=== PATIENT | female | born 1985 | race Hispanic/Latino ===

== ENCOUNTER 2017-01-11 07:38 | Emergency (ER) | payer OTHER ==
[2017-01-11] MEDS ORDERED: Promethazine HCl 25 MG/ML VIAL ONE (08:23)
[2017-01-11] MEDS ORDERED: Sodium Chloride 0.9% 1,000 ML ONE (08:23)
[2017-01-11] MEDS ORDERED: Pantoprazole 40 MG VIAL ONE (08:24)
[2017-01-11 09:16] LABS: #Basophils 0.1 thou/uL (0.0-0.2); #Lymphocytes 1.1 thou/uL (1.20-3.40); #Monocytes 0.4 thou/uL (0.11-0.59); #Neutrophils 7.3 thou/uL (1.40-6.50); %Basophils 0.6 % (0.0-1.0); %Lymphocytes 12.9 % (21.0-51.0); %Monocytes 4.3 % (0.0-10.0); %Neutrophils 82.1 % (42.0-75.0); Hemoglobin 11.4 g/dL (12.0-16.0); Mean Corpuscular HGB CONC 30.3 g/dL (32.0-36.0); Mean Corpuscular Hemoglobin 22.6 pg (27.0-31.0); Mean Corpuscular Volume 74.8 fl (81.0-99.0); Mean Platelet Volume 8.2 fL (7.4-10.4); Platelet Count 353 thou/uL (130-400); RBC Distribution Width 18.5 % (11.5-14.5); Red Blood Cell (RBC) Count 5.02 mill/uL (4.20-5.40); White Blood Cell (WBC) Count 8.9 thou/uL (4.8-10.8)
[2017-01-11 09:20] LABS: ALT (SGPT) 14 U/L (0-55); AST (SGOT) 25 U/L (5-34); Albumin 4.7 g/dL (3.5-5.0); Alkaline Phosphatase 111 U/L (40-150); Amylase 117 U/L (25-125); Anion Gap 20 mmol/L (10-20); BUN (Urea Nitrogen) 13 mg/dL (7.0-18.7); Bilirubin, Total 0.6 mg/dL (0.2-1.2); Calc. Creatinine Clearance 0 mL/min (70-130); Calcium 9.8 mg/dL (7.8-10.44); Carbon Dioxide 22 mmol/L (22-29); Chloride 103 mmol/L (98-107); Estimated GFR-MDRD 81; Globulin 4.3 g/dL (2.4-3.5); Glucose 115 mg/dL (70-105); Lipase 23 U/L (8-78); Potassium 3.6 mmol/L (3.5-5.1); Sodium 141 mmol/L (136-145)
[2017-01-11 09:21] LABS: MDiff Complete? YES; Microcytosis SLIGHT = 6-15 cells (100X) (0-5/hpf)
[2017-01-11 09:22] LABS: Anisocytosis SLIGHT = 6-15 cells (100X) (0-5/hpf); PLT Morphology Comment Appears Adequate
[2017-01-11 09:35] LABS: Blood, Urine Trace (Negative); Clarity Clear (Clear); Glucose, Urine (Dipstick) Negative (Negative); Leukocyte Negative (Negative); Nitrite Negative (Negative); Protein, Urine (Dipstick) > or equal to 300 mg/dL (Neg-Trace); pH, Urine 8.5 (5.0-9.0)
[2017-01-11 09:53] LABS: Bilirubin Negative (Negative); Icto Negative (Negative)
[2017-01-11 09:55] LABS: Pregu Control Bar Appear? YES (CONTROL BAR)
--- NOTE | 2017-01-11 10:52 | CT ---
CT ABDOMEN AND PELVIS WITHOUT IV CONTRAST: Date: 01/11/17 HISTORY: Nausea and vomiting for 24 hours. COMPARISON: Contrasted study on 02/29/16. FINDINGS: Postsurgical changes related to cholecystectomy are again noted. The lung bases, liver, spleen, pancreas, bilateral adrenal glands, kidneys, urinary bladder, and samish fahad demonstrate a grossly normal nonenhanced CT appearance. As noted on the prior examination, there is a left ovarian hypodense cystic lesion which measures 1. 9 cm and is not significantly changed in size. This again demonstrates an attenuation coefficient mo st suggestive of an ovarian cyst. No renal or ureteral calculi are seen bilaterally, and there is no evidence of hydronephrosis. A retrocecal appendix is visualized and normal in caliber. IMPRESSION: 1. Stable hypodense left ovarian cystic lesion which does demonstrate an attenuation coefficient mo st suggestive of a cyst. This is unchanged in size compared to the prior exam. 2. No renal or ureteral calculi seen bilaterally. 3. No CT evidence of appendicitis. 4. Post cholecystectomy changes. POS: JAYRO
== END 2017-01-11 10:57 | disposition home or self-care (01) ==
LOC: NAV ERS 07:38
DX: G43.A0 Cyclical vomiting, in migraine, not intractable (principal); R10.13 Epigastric pain; J45.909 Unspecified asthma, uncomplicated; F41.9 Anxiety disorder, unspecified; Z79.899 Other long term (current) drug therapy
CPT/HCPCS: 74176; 80053; 81003; 81025; 82150; 83690; 85025; 96361; 96372; 96374; 96375; C9113; J2270; J2550; J7050

== ENCOUNTER 2017-01-11 21:33 | Emergency (ER) | payer OTHER ==
[2017-01-11] MEDS ORDERED: Sodium Chloride 0.9% 1,000 ML ONE (21:57)
[2017-01-11] MEDS ORDERED: Promethazine HCl 25 MG/ML VIAL ONE (21:57)
[2017-01-11] MEDS ORDERED: Pantoprazole 40 MG VIAL ONE (22:00)
[2017-01-11 22:09] LABS: #Basophils 0.1 thou/uL (0.0-0.2); #Lymphocytes 1.2 thou/uL (1.20-3.40); #Monocytes 0.5 thou/uL (0.11-0.59); #Neutrophils 5.8 thou/uL (1.40-6.50); %Basophils 0.9 % (0.0-1.0); %Eosinophils 0.2 % (0.0-10.0); %Lymphocytes 15.8 % (21.0-51.0); %Monocytes 6.7 % (0.0-10.0); %Neutrophils 76.4 % (42.0-75.0); Hemoglobin 10.8 g/dL (12.0-16.0); Mean Corpuscular Hemoglobin 22.3 pg (27.0-31.0); Mean Corpuscular Volume 74.6 fl (81.0-99.0); Mean Platelet Volume 8.1 fL (7.4-10.4); Platelet Count 321 thou/uL (130-400); RBC Distribution Width 18.2 % (11.5-14.5); Red Blood Cell (RBC) Count 4.84 mill/uL (4.20-5.40); White Blood Cell (WBC) Count 7.6 thou/uL (4.8-10.8)
[2017-01-11 22:10] LABS: MDiff Complete? YES
[2017-01-11 22:19] LABS: ALT (SGPT) 14 U/L (0-55); AST (SGOT) 26 U/L (5-34); Albumin 4.2 g/dL (3.5-5.0); Alkaline Phosphatase 100 U/L (40-150); Anion Gap 16 mmol/L (10-20); BUN (Urea Nitrogen) 12 mg/dL (7.0-18.7); Bilirubin, Total 0.5 mg/dL (0.2-1.2); Calc. Creatinine Clearance 0 mL/min (70-130); Carbon Dioxide 21 mmol/L (22-29); Chloride 105 mmol/L (98-107); Estimated GFR-MDRD Greater than 90; Globulin 3.9 g/dL (2.4-3.5); Glucose 108 mg/dL (70-105); Lipase 35 U/L (8-78); Potassium 3.3 mmol/L (3.5-5.1); Protein, Total 8.1 g/dL (6.0-8.3); Sodium 139 mmol/L (136-145)
[2017-01-11] MEDS ORDERED: Potassium Chloride 10 MEQ/100 ML PREMIX BAG ONE ×2 (22:24→22:25)
[2017-01-11] MEDS ORDERED: NS 0.9% w/ 20 MEQ KCL 1,000 ML ONE (22:28)
== END 2017-01-11 22:45 | disposition short-term general hospital (02) ==
LOC: NAV ERS 21:33
DX: G43.A0 Cyclical vomiting, in migraine, not intractable (principal); D64.9 Anemia, unspecified; E87.6 Hypokalemia; R10.13 Epigastric pain; J45.909 Unspecified asthma, uncomplicated; F41.9 Anxiety disorder, unspecified
CPT/HCPCS: 83605; 83690; C9113; J2270; J2550; J3480; J7050

== ENCOUNTER 2017-04-30 10:19 | Emergency (ER) | payer OTHER ==
[2017-04-30] MEDS ORDERED: Sodium Chloride 0.9% 1,000 ML ONE (10:39)
[2017-04-30] MEDS ORDERED: Ondansetron HCl/PF 4 MG/2 ML Vial ONE (10:39)
[2017-04-30 11:04] LABS: ALT (SGPT) 11 U/L (8-55); AST (SGOT) 27 U/L (5-34); Albumin 4.5 g/dL (3.5-5.0); Alkaline Phosphatase 108 U/L (40-150); Anion Gap 17 mmol/L (10-20); BUN (Urea Nitrogen) 9 mg/dL (7.0-18.7); Bilirubin, Total 0.6 mg/dL (0.2-1.2); Calc. Creatinine Clearance 0 mL/min (70-130); Calcium 9.4 mg/dL (7.8-10.44); Carbon Dioxide 22 mmol/L (22-29); Chloride 101 mmol/L (98-107); Estimated GFR-MDRD 87; Globulin 3.8 g/dL (2.4-3.5); Glucose 110 mg/dL (70-105); Lipase 27 U/L (8-78); Protein, Total 8.3 g/dL (6.0-8.3); Sodium 137 mmol/L (136-145)
[2017-04-30 11:15] LABS: #Basophils 0.1 thou/uL (0.0-0.2); #Eosinphils 0.1 thou/uL (0.0-0.7); #Lymphocytes 1.3 thou/uL (1.20-3.40); #Monocytes 0.4 thou/uL (0.11-0.59); #Neutrophils 4.9 thou/uL (1.40-6.50); %Basophils 1.2 % (0.0-1.0); %Eosinophils 0.8 % (0.0-10.0); %Lymphocytes 18.6 % (21.0-51.0); %Monocytes 6.2 % (0.0-10.0); %Neutrophils 73.2 % (42.0-75.0); Anisocytosis SLIGHT = 6-15 cells (100X) (0-5/hpf); Hemoglobin 11.3 g/dL (12.0-16.0); MDiff Complete? YES; Mean Corpuscular HGB CONC 30.1 g/dL (32.0-36.0); Mean Corpuscular Hemoglobin 22.6 pg (27.0-31.0); Mean Platelet Volume 8.1 fL (7.4-10.4); Microcytosis SLIGHT = 6-15 cells (100X) (0-5/hpf); PLT Morphology Comment Appears Adequate; Platelet Count 292 thou/uL (130-400); RBC Distribution Width 17.8 % (11.5-14.5); Red Blood Cell (RBC) Count 5.01 mill/uL (4.20-5.40); Target Cells MODERATE= 6-15 cells (100X) (0-1/hpf); White Blood Cell (WBC) Count 6.7 thou/uL (4.8-10.8)
== END 2017-04-30 11:00 | disposition home or self-care (01) ==
LOC: NAV ERS 10:19
DX: R11.2 Nausea with vomiting, unspecified (principal); R10.9 Unspecified abdominal pain; J45.909 Unspecified asthma, uncomplicated; F41.9 Anxiety disorder, unspecified; F12.10 Cannabis abuse, uncomplicated; Z79.899 Other long term (current) drug therapy
CPT/HCPCS: 80053; 82150; 83690; 85025; 96374; J2405; J7050

== ENCOUNTER 2018-03-10 11:59 | Emergency (ER) | payer MEDICAID ==
[2018-03-10] MEDS ORDERED: Ondansetron HCl/PF 4 MG/2 ML Vial ONE (12:54)
[2018-03-10] MEDS ORDERED: Promethazine HCl 25 MG/ML VIAL ONE (12:54)
[2018-03-10] MEDS ORDERED: Sodium Chloride 0.9% 1,000 ML ONE ×3 (12:54→16:13)
[2018-03-10 13:39] LABS: #Basophils 0.1 thou/uL (0.0-0.2); #Monocytes 0.7 thou/uL (0.11-0.59); #Neutrophils 5.2 thou/uL (1.40-6.50); %Basophils 1.1 % (0.0-1.0); %Eosinophils 0.4 % (0.0-10.0); %Lymphocytes 24.7 % (21.0-51.0); %Monocytes 8.4 % (0.0-10.0); %Neutrophils 65.4 % (42.0-75.0); Hemoglobin 12.5 g/dL (12.0-16.0); Mean Corpuscular HGB CONC 31.1 g/dL (32.0-36.0); Mean Corpuscular Hemoglobin 24.5 pg (27.0-31.0); Mean Corpuscular Volume 78.9 fl (81.0-99.0); Mean Platelet Volume 8.6 fL (7.4-10.4); Platelet Count 294 thou/uL (130-400); RBC Distribution Width 16.9 % (11.5-14.5); Red Blood Cell (RBC) Count 5.09 mill/uL (4.20-5.40)
[2018-03-10 13:44] LABS: ALT (SGPT) 21 U/L (8-55); AST (SGOT) 30 U/L (5-34); Albumin 4.2 g/dL (3.5-5.0); Alkaline Phosphatase 86 U/L (40-150); Anion Gap 18 mmol/L (10-20); BUN (Urea Nitrogen) 11 mg/dL (7.0-18.7); Bilirubin, Total 0.6 mg/dL (0.2-1.2); CK (CPK) 162 U/L (29-168); Calc. Creatinine Clearance 0 mL/min (70-130); Calcium 9.1 mg/dL (7.8-10.44); Carbon Dioxide 20 mmol/L (22-29); Chloride 101 mmol/L (98-107); Estimated GFR-MDRD 89; Globulin 3.5 g/dL (2.4-3.5); Glucose 103 mg/dL (70-105); Lipase 88 U/L (8-78); Protein, Total 7.7 g/dL (6.0-8.3); Sodium 136 mmol/L (136-145)
[2018-03-10 13:52] LABS: Potassium 2.8 mmol/L (3.5-5.1)
[2018-03-10] MEDS ORDERED: Potassium Chloride 10 MEQ/100 ML PREMIX BAG ONE (14:06)
[2018-03-10] MEDS ORDERED: diphenhydrAMINE 50 MG/ML VIAL ONE (17:11)
[2018-03-10] MEDS ORDERED: Prochlorperazine 10 MG/2 ML VIAL ONE (17:11)
[2018-03-10 17:13] LABS: Bilirubin Negative (Negative); Blood, Urine Large (Negative); Glucose, Urine (Dipstick) Negative (Negative); Leukocyte Negative (Negative); Nitrite Positive (Negative); Protein, Urine (Dipstick) 30 mg/dL (Neg-Trace); pH, Urine 8.5 (5.0-9.0)
[2018-03-10 17:22] LABS: Clarity Hazy (Clear)
[2018-03-10 17:24] LABS: Bacteria/HPF 4+ HPF (None Seen); WBC/HPF 0-3 HPF (0-3)
[2018-03-10 17:25] LABS: Pregnancy Test - Urine (BHCG) Negative (Negative); Pregu Control Background? CLEAR/WHITE (CLR/WHITE); Pregu Control Bar Appear? YES (CONTROL BAR)
== END 2018-03-10 17:43 | disposition short-term general hospital (02) ==
LOC: NAV ERS 11:59
DX: E87.6 Hypokalemia (principal); E86.0 Dehydration; R11.2 Nausea with vomiting, unspecified; J45.909 Unspecified asthma, uncomplicated; F41.9 Anxiety disorder, unspecified; Z79.899 Other long term (current) drug therapy
CPT/HCPCS: 80053; 81003; 81015; 81025; 82550; 83690; 85025; 93005; 96361; 96365; 96375; J0780; J1200; J2405; J2550; J3480; J7050

== ENCOUNTER 2020-03-30 16:29 | Emergency (ER) | payer OTHER ==
[2020-03-30] MEDS ORDERED: Ondansetron ODT 4 MG TAB ONE (17:01)
[2020-03-30 17:56] LABS: #Basophils 0.1 thou/uL (0.0-0.2); #Lymphocytes 2.3 thou/uL (1.20-3.40); #Monocytes 0.7 thou/uL (0.11-0.59); #Neutrophils 5.7 thou/uL (1.40-6.50); %Basophils 0.9 % (0.0-1.0); %Eosinophils 0.4 % (0.0-10.0); %Monocytes 8.1 % (0.0-10.0); %Neutrophils 64.6 % (42.0-75.0); Hemoglobin 13.6 g/dL (12.0-16.0); Mean Corpuscular Volume 90.3 fL (78.0-98.0); Mean Platelet Volume 8.8 fL (7.4-10.4); Platelet Count 263 thou/uL (130-400); RBC Distribution Width 14.8 % (11.5-14.5); Red Blood Cell (RBC) Count 4.86 mill/uL (4.20-5.40); White Blood Cell (WBC) Count 8.9 thou/uL (4.8-10.8)
[2020-03-30 18:03] LABS: ALT (SGPT) 82 U/L (8-55); AST (SGOT) 61 U/L (5-34); Albumin 4.3 g/dL (3.5-5.0); Alkaline Phosphatase 103 U/L (40-110); Anion Gap 15 mmol/L (10-20); BUN (Urea Nitrogen) 11 mg/dL (7.0-18.7); Bilirubin, Total 0.6 mg/dL (0.2-1.2); Calc. Creatinine Clearance 0 mL/min (70-130); Calcium 9.3 mg/dL (7.8-10.44); Carbon Dioxide 23 mmol/L (22-29); Chloride 101 mmol/L (98-107); Estimated GFR-MDRD 72; Globulin 3.7 g/dL (2.4-3.5); Glucose 105 mg/dL (70-105); Lipase 144 U/L (8-78); Sodium 136 mmol/L (136-145)
[2020-03-30] MEDS ORDERED: Morphine 4 MG/ML VIAL ONE (18:20)
[2020-03-30] MEDS ORDERED: diphenhydrAMINE 50 MG/ML VIAL ONE (18:21)
[2020-03-30] MEDS ORDERED: Potassium Chloride 20 MEQ TAB ONE (18:21)
[2020-03-30] MEDS ORDERED: Haloperidol Lactate 5 MG/ML VIAL ONE (18:21)
[2020-03-30] MEDS ORDERED: Ondansetron PF 4 MG/2 ML Vial ONE (18:21)
== END 2020-03-30 18:50 | disposition home or self-care (01) ==
LOC: NAV ERS 16:29
DX: E87.6 Hypokalemia (principal); R11.2 Nausea with vomiting, unspecified; K21.9 Gastro-esophageal reflux disease without esophagitis; J45.909 Unspecified asthma, uncomplicated; F41.9 Anxiety disorder, unspecified; Z79.899 Other long term (current) drug therapy
CPT/HCPCS: 80053; 83690; 85025; 96361; 96372; 96374; 96375; J1200; J1630; J2270; J2405; Q0162

== ENCOUNTER 2020-04-02 12:25 | Emergency (ER) | payer OTHER ==
[2020-04-02] MEDS ORDERED: Sodium Chloride 0.9% 1,000 ML ONE (12:43)
[2020-04-02] MEDS ORDERED: Ondansetron PF 4 MG/2 ML Vial ONE (12:43)
[2020-04-02] MEDS ORDERED: Haloperidol Lactate 5 MG/ML VIAL ONE (12:54)
[2020-04-02] MEDS ORDERED: diphenhydrAMINE 50 MG/ML VIAL ONE (12:54)
[2020-04-02] MEDS ORDERED: Morphine 4 MG/ML VIAL ONE (13:02)
[2020-04-02 13:05] LABS: #Basophils 0.1 thou/uL (0.0-0.2); #Eosinphils 0.1 thou/uL (0.0-0.7); #Lymphocytes 1.9 thou/uL (1.20-3.40); #Monocytes 0.6 thou/uL (0.11-0.59); #Neutrophils 5.1 thou/uL (1.40-6.50); %Basophils 1.3 % (0.0-1.0); %Eosinophils 0.7 % (0.0-10.0); %Lymphocytes 24.4 % (21.0-51.0); %Monocytes 7.8 % (0.0-10.0); %Neutrophils 65.7 % (42.0-75.0); Hemoglobin 13.7 g/dL (12.0-16.0); Mean Corpuscular HGB CONC 30.1 g/dL (32.0-36.0); Mean Corpuscular Hemoglobin 27.9 pg (27.0-31.0); Mean Corpuscular Volume 92.7 fL (78.0-98.0); Mean Platelet Volume 9.5 fL (7.4-10.4); Platelet Count 240 thou/uL (130-400); RBC Distribution Width 15.1 % (11.5-14.5); Red Blood Cell (RBC) Count 4.89 mill/uL (4.20-5.40); White Blood Cell (WBC) Count 7.7 thou/uL (4.8-10.8)
[2020-04-02 13:26] LABS: ALT (SGPT) 104 U/L (8-55); AST (SGOT) 52 U/L (5-34); Albumin 4.3 g/dL (3.5-5.0); Alkaline Phosphatase 109 U/L (40-110); Anion Gap 16 mmol/L (10-20); BUN (Urea Nitrogen) 10 mg/dL (7.0-18.7); Bilirubin, Total 0.4 mg/dL (0.2-1.2); Calc. Creatinine Clearance 0 mL/min (70-130); Calcium 9.1 mg/dL (7.8-10.44); Carbon Dioxide 19 mmol/L (22-29); Chloride 106 mmol/L (98-107); Estimated GFR-MDRD 83; Globulin 3.7 g/dL (2.4-3.5); Glucose 106 mg/dL (70-105); Lipase 46 U/L (8-78); Potassium 4.2 mmol/L (3.5-5.1); Sodium 137 mmol/L (136-145)
[2020-04-02 15:12] LABS: Bilirubin Negative (Negative); Blood, Urine Small (Negative); Clarity Clear (Clear); Glucose, Urine (Dipstick) Negative (Negative); Leukocyte Negative (Negative); Nitrite Negative (Negative); Protein, Urine (Dipstick) Negative (Neg-Trace); Urobilinogen 0.2 mg/dL (Less than 2)
[2020-04-02 15:36] LABS: RBC/HPF 0-3 HPF (0-3)
== END 2020-04-02 14:55 | disposition home or self-care (01) ==
LOC: NAV ERS 12:25
DX: R11.15 Cyclical vomiting syndrome unrelated to migraine (principal); K21.9 Gastro-esophageal reflux disease without esophagitis; J45.909 Unspecified asthma, uncomplicated; F41.9 Anxiety disorder, unspecified; Z79.899 Other long term (current) drug therapy
CPT/HCPCS: 80053; 81003; 81015; 83690; 85025; 96361; 96372; 96374; 96375; J1200; J1630; J2270; J2405; J7050

== ENCOUNTER 2020-04-02 21:49 | Emergency (ER) | payer OTHER ==
[2020-04-02] MEDS ORDERED: diphenhydrAMINE 50 MG/ML VIAL ONE (21:54)
== END 2020-04-02 23:08 | disposition home or self-care (01) ==
LOC: NAV ERS 21:49
DX: G24.09 Other drug induced dystonia (principal); T43.4X5A Adverse effect of butyrophenone and thiothixene neuroleptics, initial encounter; K21.9 Gastro-esophageal reflux disease without esophagitis; J45.909 Unspecified asthma, uncomplicated; F41.9 Anxiety disorder, unspecified; Z79.899 Other long term (current) drug therapy
CPT/HCPCS: 96372; 99284; J1200

== ENCOUNTER 2020-04-07 08:36 | Emergency (ER) | payer OTHER ==
[2020-04-07] MEDS ORDERED: Ondansetron ODT 4 MG TAB ONE (08:48)
[2020-04-07] MEDS ORDERED: Promethazine HCl 25 MG/ML VIAL ONE ×2 (08:56→14:47)
[2020-04-07] MEDS ORDERED: Lorazepam 2 MG/ML VIAL ONE (09:14)
[2020-04-07 09:15] LABS: #Eosinphils 0.1 thou/uL (0.0-0.7); #Lymphocytes 1.4 thou/uL (1.20-3.40); #Monocytes 0.5 thou/uL (0.11-0.59); #Neutrophils 3.9 thou/uL (1.40-6.50); %Basophils 0.7 % (0.0-1.0); %Eosinophils 0.9 % (0.0-10.0); %Lymphocytes 23.9 % (21.0-51.0); %Monocytes 7.7 % (0.0-10.0); %Neutrophils 66.8 % (42.0-75.0); Hemoglobin 13.2 g/dL (12.0-16.0); Mean Corpuscular HGB CONC 31.3 g/dL (32.0-36.0); Mean Corpuscular Volume 92.4 fL (78.0-98.0); Mean Platelet Volume 9.3 fL (7.4-10.4); Platelet Count 212 thou/uL (130-400); RBC Distribution Width 15.4 % (11.5-14.5); Red Blood Cell (RBC) Count 4.56 mill/uL (4.20-5.40); White Blood Cell (WBC) Count 5.9 thou/uL (4.8-10.8)
[2020-04-07] MEDS ORDERED: Morphine 2 MG/ML SYRINGE ONE ×2 (09:27→13:10)
[2020-04-07] MEDS ORDERED: Pantoprazole 40 MG VIAL ONE (09:27)
[2020-04-07 09:38] LABS: ALT (SGPT) 74 U/L (8-55); AST (SGOT) 44 U/L (5-34); Albumin 3.9 g/dL (3.5-5.0); Alkaline Phosphatase 94 U/L (40-110); Anion Gap 16 mmol/L (10-20); BUN (Urea Nitrogen) 11 mg/dL (7.0-18.7); Bilirubin, Total 0.4 mg/dL (0.2-1.2); Calc. Creatinine Clearance 0 mL/min (70-130); Calcium 8.6 mg/dL (7.8-10.44); Carbon Dioxide 16 mmol/L (22-29); Chloride 108 mmol/L (98-107); Estimated GFR-MDRD Greater than 90; Globulin 3.4 g/dL (2.4-3.5); Glucose 116 mg/dL (70-105); Lipase 41 U/L (8-78); Potassium 4.4 mmol/L (3.5-5.1); Protein, Total 7.3 g/dL (6.0-8.3); Sodium 136 mmol/L (136-145)
--- NOTE | 2020-04-07 09:54 | RAD ---
Exam: Single view of the chest and 2 views of the abdomen HISTORY: Intermittent epigastric abdominal pain and vomiting COMPARISON: 01/05/2018 FINDINGS: 2 views of the abdomen and a single view the chest shows a nonspecific, nonobstructive raymond l gas pattern. Air is seen to the level of the rectum. No free air or air-fluid levels are seen on upright examination. Cholecystectomy clips are seen. The cardiomediastinal silhouette is normal in size. There is no evidence of consolidation, mass, or p leural effusion. IMPRESSION: Nonobstructive bowel gas pattern
[2020-04-07 10:25] LABS: Bilirubin Negative (Negative); Blood, Urine Negative (Negative); Clarity Clear (Clear); Glucose, Urine (Dipstick) Negative (Negative); Leukocyte Negative (Negative); Nitrite Negative (Negative); Protein, Urine (Dipstick) Negative (Neg-Trace); Urobilinogen 0.2 mg/dL (Less than 2)
[2020-04-07 10:30] LABS: Pregnancy Test - Urine (BHCG) Negative (Negative); Pregu Control Background? CLEAR/WHITE (CLR/WHITE); Pregu Control Bar Appear? YES (CONTROL BAR); Specific Gravity 1.025 (1.002-1.036)
[2020-04-07 10:33] LABS: Amphetamine Not Detected (NotDetected); Barbiturates Screen Not Detected (NotDetected); Benzodiazepine Screen Detected (NotDetected); Cocaine Metabolite Screen Not Detected (NotDetected); Medtox Control Line Valid? VALID (VALID); Methadone Not Detected (NotDetected); Methamphetamine Not Detected (NotDetected); Opiate Screen Detected (NotDetected); Oxycodone Screen Not Detected (NotDetected); Phencyclidine (PCP) Not Detected (NotDetected); THC/Cannabinoid Screen Detected (NotDetected); Tricyclic Screen Not Detected (NotDetected)
[2020-04-07] MEDS ORDERED: Ondansetron PF 4 MG/2 ML Vial ONE (13:13)
[2020-04-07] MEDS ORDERED: Sodium Chloride 0.9% 1,000 ML ONE (13:58)
[2020-04-07] MEDS ORDERED: Sodium Chloride 0.9% 500 ML ONE (14:46)
== END 2020-04-07 14:54 | disposition short-term general hospital (02) ==
LOC: NAV ERS 08:36
DX: R11.15 Cyclical vomiting syndrome unrelated to migraine (principal); R10.10 Upper abdominal pain, unspecified; R10.816 Epigastric abdominal tenderness; K21.9 Gastro-esophageal reflux disease without esophagitis; J45.909 Unspecified asthma, uncomplicated; F41.9 Anxiety disorder, unspecified; Z79.899 Other long term (current) drug therapy; Z87.891 Personal history of nicotine dependence
CPT/HCPCS: 74022; 80053; 80306; 81003; 81025; 83690; 85025; 94760; 96365; 96375; 96376; C9113; J2060; J2270; J2405; J2550; J7030; J7050; Q0162

== ENCOUNTER 2021-03-15 09:36 | Emergency (ER) | payer OTHER, SELFPAY ==
[2021-03-15] MEDS ORDERED: Sodium Chloride 0.9% 1,000 ML ONE (10:04)
[2021-03-15] MEDS ORDERED: Lidocaine Viscous Sol 2% 15 ml UD Cup ONE (10:05)
[2021-03-15] MEDS ORDERED: Mag-Al Plus 1200 MG/1200 MG/120 MG/30 ML UDCUP ONE (10:05)
[2021-03-15] MEDS ORDERED: Ondansetron PF 4 MG/2 ML Vial ONE (10:05)
[2021-03-15 10:54] LABS: #Basophils 0.1 thou/uL (0.0-0.2); #Eosinphils 0.2 thou/uL (0.0-0.7); #Lymphocytes 2.4 thou/uL (1.20-3.40); #Monocytes 0.5 thou/uL (0.11-0.59); #Neutrophils 3.8 thou/uL (1.40-6.50); %Basophils 1.2 % (0.0-1.0); %Eosinophils 2.2 % (0.0-10.0); %Lymphocytes 34.6 % (21.0-51.0); %Monocytes 7.1 % (0.0-10.0); %Neutrophils 54.9 % (42.0-75.0)
[2021-03-15 10:55] LABS: Hemoglobin 12.1 g/dL (12.0-16.0); Mean Corpuscular HGB CONC 29.7 g/dL (32.0-36.0); Mean Corpuscular Volume 90.8 fL (78.0-98.0); Mean Platelet Volume 9.4 fL (7.4-10.4); Platelet Count 276 thou/uL (130-400); RBC Distribution Width 15.3 % (11.5-14.5); Red Blood Cell (RBC) Count 4.49 mill/uL (4.20-5.40); White Blood Cell (WBC) Count 6.9 thou/uL (4.8-10.8)
[2021-03-15 11:03] LABS: ALT (SGPT) 24 U/L (8-55); AST (SGOT) 28 U/L (5-34); Albumin 3.8 g/dL (3.5-5.0); Alkaline Phosphatase 87 U/L (40-110); Anion Gap 13 mmol/L (10-20); BUN (Urea Nitrogen) 8 mg/dL (7.0-18.7); Bilirubin, Total 0.2 mg/dL (0.2-1.2); Calc. Creatinine Clearance 0 mL/min (70-130); Calcium 8.3 mg/dL (7.8-10.44); Carbon Dioxide 21 mmol/L (22-29); Chloride 107 mmol/L (98-107); Globulin 3.6 g/dL (2.4-3.5); Glucose 92 mg/dL (70-105); Lipase 29 U/L (8-78); Potassium 3.9 mmol/L (3.5-5.1); Protein, Total 7.4 g/dL (6.0-8.3); Sodium 137 mmol/L (136-145)
== END 2021-03-15 11:44 | disposition home or self-care (01) ==
LOC: NAV ERS 09:36
DX: K52.9 Noninfective gastroenteritis and colitis, unspecified (principal); K21.9 Gastro-esophageal reflux disease without esophagitis; J45.909 Unspecified asthma, uncomplicated; Z79.899 Other long term (current) drug therapy
CPT/HCPCS: 80053; 83690; 85025; 96374; J2405; J7050

== ENCOUNTER 2021-03-16 06:36 | Emergency (ER) | payer SELFPAY | END 2021-03-16 07:03 | disposition left against medical advice (07) | LOC: NAV ERS 06:36 | DX: Z53.21 Procedure and treatment not carried out due to patient leaving prior to being seen by health care provider (principal) ==

== ENCOUNTER 2021-03-19 19:22 | Emergency (ER) | payer SELFPAY ==
[2021-03-19] MEDS ORDERED: Sodium Chloride 0.9% 1,000 ML ONE (19:38)
[2021-03-19] MEDS ORDERED: Ondansetron PF 4 MG/2 ML Vial ONE (19:38)
[2021-03-19] MEDS ORDERED: Promethazine HCl 25 MG/ML VIAL ONE (19:48)
[2021-03-19 19:49] LABS: #Basophils 0.1 thou/uL (0.0-0.2); #Lymphocytes 2.8 thou/uL (1.20-3.40); #Monocytes 0.7 thou/uL (0.11-0.59); %Eosinophils 0.2 % (0.0-10.0); %Monocytes 6.6 % (0.0-10.0); %Neutrophils 66.2 % (42.0-75.0); Hemoglobin 13.2 g/dL (12.0-16.0); Mean Corpuscular HGB CONC 30.5 g/dL (32.0-36.0); Mean Corpuscular Hemoglobin 27.1 pg (27.0-31.0); Mean Platelet Volume 8.7 fL (7.4-10.4); Platelet Count 290 thou/uL (130-400); RBC Distribution Width 15.1 % (11.5-14.5); Red Blood Cell (RBC) Count 4.88 mill/uL (4.20-5.40); White Blood Cell (WBC) Count 10.6 thou/uL (4.8-10.8)
[2021-03-19 20:00] LABS: BHCG - Serum Negative (NEGATIVE); Pregs Control Bar Appear? YES (CONTROL BAR)
[2021-03-19 20:09] LABS: ALT (SGPT) 37 U/L (8-55); AST (SGOT) 40 U/L (5-34); Albumin 4.3 g/dL (3.5-5.0); Alkaline Phosphatase 97 U/L (40-110); Anion Gap 18 mmol/L (10-20); BUN (Urea Nitrogen) 11 mg/dL (7.0-18.7); Bilirubin, Total 0.5 mg/dL (0.2-1.2); Calc. Creatinine Clearance 0 mL/min (70-130); Calcium 8.8 mg/dL (7.8-10.44); Carbon Dioxide 20 mmol/L (22-29); Chloride 103 mmol/L (98-107); Globulin 3.7 g/dL (2.4-3.5); Glucose 107 mg/dL (70-105); Lipase 30 U/L (8-78); Potassium 3.1 mmol/L (3.5-5.1); Sodium 138 mmol/L (136-145)
[2021-03-19] MEDS ORDERED: Potassium Chloride 20 MEQ TAB ONE (20:36)
[2021-03-19] MEDS ORDERED: Sodium Chloride 0.9% 100 ML ONE (20:39)
== END 2021-03-19 20:57 | disposition home or self-care (01) ==
LOC: NAV ERS 19:22
DX: R11.2 Nausea with vomiting, unspecified (principal); E87.6 Hypokalemia; K21.9 Gastro-esophageal reflux disease without esophagitis; J45.909 Unspecified asthma, uncomplicated; Z87.891 Personal history of nicotine dependence; Z79.899 Other long term (current) drug therapy
CPT/HCPCS: 80053; 83690; 84703; 85025; 96365; 96375; 96376; J2405; J2550; J7050

== ENCOUNTER 2025-09-30 17:09 | Inpatient (IN) | payer BC, SELFPAY ==
[2025-09-30 18:17] LABS: Hematocrit 35.3 % (36.0-47.0); Hemoglobin 11.6 g/dL (12.0-16.0); MDiff Complete? YES; Manual Diff?? YES; Mean Corpuscular Hemoglobin 24.9 pg (27.0-31.0); Mean Corpuscular Volume 75.8 fl (78.0-98.0); Platelet Count 359 10x3/uL (130-400); Red Blood Cell (RBC) Count 4.66 mill/uL (4.20-5.40); White Blood Cell (WBC) Count 7.5 10x3/uL (4.8-10.8)
[2025-09-30 18:18] LABS: Platelet Adequacy Comment Platelets Normal
[2025-09-30 18:27] LABS: ALT (SGPT) 27 U/L (Less than 34); AST (SGOT) 44 U/L (11-34); Albumin 4.0 g/dL (3.1-4.5); Alkaline Phosphatase 91 U/L (40-110); Anion Gap 19 mmol/L (10-20); BUN (Urea Nitrogen) 10 mg/dL (7.0-18.7); Bilirubin, Total 0.5 mg/dL (0.3-1.2); Calc. Creatinine Clearance 0 mL/min (70-130); Calcium 9.2 mg/dL (7.8-10.44); Carbon Dioxide 16 mmol/L (22-29); Chloride 108 mmol/L (98-107); Globulin 4.6 g/dL (2.4-3.5); Glucose 122 mg/dL (70-105); Lipase 37 U/L (8-78); Potassium 4.3 mmol/L (3.5-5.1); Sodium 139 mmol/L (136-145)
[2025-09-30 19:25] LABS: Glucose, Urine (Dipstick) Negative (Negative); Leukocyte Negative (Negative); Protein, Urine (Dipstick) 100 mg/dL (Neg-Trace); Specific Gravity, Urine 1.020 (1.005-1.030)
[2025-09-30 19:26] LABS: CAUTI Indications for Culture Pelvic or flank pain; Cocaine Metabolite Screen Negative (Negative); Mucous/LPF 2+ LPF (<2+); RBC/HPF 0-3 HPF (0-3); THC/Cannabinoid Screen PRELIM POSITIVE (Negative); Tricyclic Screen Negative (Negative)
[2025-09-30 19:27] LABS: Urine Culture Reflex No No
[2025-09-30] MEDS ORDERED: Ondansetron PF 4 MG/2 ML Vial IVP PRN (21:45)
[2025-09-30] MEDS: Pantoprazole 40 MG VIAL IVP SCH (23:40)
[2025-10-01] MEDS: Ondansetron PF 4 MG/2 ML Vial IVP SCH ×2 (01:35→08:06)
[2025-10-01 06:01] LABS: ALT (SGPT) 22 U/L (Less than 34); AST (SGOT) 28 U/L (11-34); Albumin 3.7 g/dL (3.1-4.5); Alkaline Phosphatase 85 U/L (40-110); Anion Gap 14 mmol/L (10-20); BUN (Urea Nitrogen) 7 mg/dL (7.0-18.7); Bilirubin, Total 0.5 mg/dL (0.3-1.2); Calc. Creatinine Clearance 214 mL/min (70-130); Calcium 8.8 mg/dL (7.8-10.44); Carbon Dioxide 21 mmol/L (22-29); Chloride 108 mmol/L (98-107); Globulin 4.0 g/dL (2.4-3.5); Glucose 120 mg/dL (70-105); Potassium 3.7 mmol/L (3.5-5.1); Sodium 139 mmol/L (136-145)
[2025-10-01 06:12] LABS: Anisocytosis SLIGHT = 6-15 cells (100X) (0-5/hpf); Hematocrit 33.7 % (36.0-47.0); Hemoglobin 10.9 g/dL (12.0-16.0); MDiff Complete? YES; Mean Corpuscular Hemoglobin 24.4 pg (27.0-31.0); Mean Corpuscular Volume 75.6 fl (78.0-98.0); Microcytosis SLIGHT = 6-15 cells (100X) (0-5/hpf); Platelet Adequacy Comment Appears Adequate; Platelet Count 325 10x3/uL (130-400); Red Blood Cell (RBC) Count 4.46 mill/uL (4.20-5.40); White Blood Cell (WBC) Count 8.2 10x3/uL (4.8-10.8)
[2025-10-01] MEDS: Pantoprazole 40 MG VIAL ONE (07:52)
[2025-10-01] MEDS: diphenhydrAMINE 50 MG/ML VIAL ONE (07:53)
[2025-10-01] MEDS: Ondansetron PF 4 MG/2 ML Vial ONE (07:53)
[2025-10-01] MEDS: Pantoprazole 40 MG VIAL IVP SCH (08:35)
[2025-10-01 12:07] LABS: Glucose, Urine (Dipstick) Negative (Negative); Leukocyte Negative (Negative); Protein, Urine (Dipstick) 30 mg/dL (Neg-Trace); Specific Gravity, Urine 1.025 (1.005-1.030)
[2025-10-01 12:16] LABS: RBC/HPF 0-3 HPF (0-3)
[2025-10-02 06:19] LABS: ALT (SGPT) 19 U/L (Less than 34); AST (SGOT) 24 U/L (11-34); Albumin 3.6 g/dL (3.1-4.5); Alkaline Phosphatase 80 U/L (40-110); Anion Gap 14 mmol/L (10-20); BUN (Urea Nitrogen) 5 mg/dL (7.0-18.7); Bilirubin, Total 0.5 mg/dL (0.3-1.2); Calc. Creatinine Clearance 214 mL/min (70-130); Calcium 8.6 mg/dL (7.8-10.44); Carbon Dioxide 21 mmol/L (22-29); Chloride 104 mmol/L (98-107); Globulin 3.8 g/dL (2.4-3.5); Glucose 96 mg/dL (70-105); Potassium 3.4 mmol/L (3.5-5.1); Sodium 136 mmol/L (136-145)
[2025-10-02 06:50] LABS: Hematocrit 34.0 % (36.0-47.0); Hemoglobin 11.0 g/dL (12.0-16.0); Mean Corpuscular Hemoglobin 24.5 pg (27.0-31.0); Mean Corpuscular Volume 75.8 fl (78.0-98.0); Platelet Count 298 10x3/uL (130-400); Red Blood Cell (RBC) Count 4.49 mill/uL (4.20-5.40)
[2025-10-02 06:53] LABS: White Blood Cell (WBC) Count 6.0 10x3/uL (4.8-10.8)
[2025-10-02 06:56] LABS: Platelet Adequacy Comment Appears Adequate
[2025-10-02] MEDS: Ondansetron PF 4 MG/2 ML Vial IVP SCH (14:53)
[2025-10-02] MEDS: Metoclopramide HCl 10 MG (2 mL) VIAL IVP SCH (20:05)
[2025-10-03 05:55] LABS: Anion Gap 14 mmol/L (10-20); BUN (Urea Nitrogen) 6 mg/dL (7.0-18.7); Calc. Creatinine Clearance 210 mL/min (70-130); Calcium 8.6 mg/dL (7.8-10.44); Carbon Dioxide 20 mmol/L (22-29); Chloride 104 mmol/L (98-107); Glucose 96 mg/dL (70-105); Potassium 3.3 mmol/L (3.5-5.1); Sodium 135 mmol/L (136-145)
[2025-10-03] MEDS: Metoclopramide HCl 10 MG (2 mL) VIAL IVP SCH (06:05)
[2025-10-04 04:50] VITALS: BMI 59.8
[2025-10-04 07:16] VITALS: BP 117/81; TEMP 98.7
== END 2025-10-04 09:16 | disposition home or self-care (01) | DRG 394 ==
LOC: NAV ERS 17:09 → INTOOBSV 21:55 → NAV ACUTE 21:55 → OBSVTOIN 10-02 08:47
PROVIDERS: ADMIT Student in an Organized Health Care Education/Training Program; ATTEND Student in an Organized Health Care Education/Training Program
DX: R11.15 Cyclical vomiting syndrome unrelated to migraine (principal); N39.0 Urinary tract infection, site not specified; J45.909 Unspecified asthma, uncomplicated; Z88.8 Allergy status to other drugs, medicaments and biological substances; D64.9 Anemia, unspecified; E87.6 Hypokalemia; N76.0 Acute vaginitis; B96.89 Other specified bacterial agents as the cause of diseases classified elsewhere
CPT/HCPCS: 36415; 80048; 80053; 80306; 81001; 83690; 85025; 87086; 87480; 87510; 87660; 96361; 96365; 96375; J1200; J2060; J2405; J2470; J2550; J2765; J3030; J7030; J7120; Q0162